=== PATIENT | male | born 1995 | race Two or more races ===

== ENCOUNTER 2018-04-25 16:25 | Emergency (ER) | payer OTHER ==
[~2018-04-25] VITALS: Ht 188 cm; Wt 125.0 kg
[2018-04-25] MEDS ORDERED: DIAZEPAM 5 MG TABLET PO ONE (17:30)
[2018-04-25] MEDS ORDERED: KETOROLAC 30 MG/1 ML IM ONE (17:30)
[2018-04-25] MEDS ORDERED: HYDROcodone/APAP 5/325 TABLET PO ONE (17:30)
[2018-04-25] MEDS ORDERED: HYDROcodone/APAP 5/325 TABLET ONE (17:38)
[2018-04-25] MEDS ORDERED: KETOROLAC 30 MG/1 ML ONE (17:38)
[2018-04-25] MEDS ORDERED: DIAZEPAM 5 MG TABLET ONE (17:38)
[2018-04-25 18:34] VITALS: BP 140/57
== END 2018-04-25 18:36 | disposition home or self-care (01) ==
LOC: ED 18:30
DX: S39.012A Strain of muscle, fascia and tendon of lower back, initial encounter (principal); G89.21 Chronic pain due to trauma; X50.0XXA Overexertion from strenuous movement or load, initial encounter; Y93.89 Activity, other specified; Y92.098 Other place in other non-institutional residence as the place of occurrence of the external cause; Y99.8 Other external cause status
CPT/HCPCS: 72110; 96372; 99284; J1885